=== PATIENT | female | born 1990 | race Hispanic/Latino ===

== ENCOUNTER 2017-08-05 13:04 | Outpatient (CLI) | payer OTHER | END 2017-08-05 13:05 | disposition home or self-care (01) | LOC: BICULT 13:04 | PROVIDERS: ATTEND Family Medicine | DX: N63.10 Unspecified lump in the right breast, unspecified quadrant (principal) ==

== ENCOUNTER 2020-03-30 08:12 | Emergency (ER) | payer OTHER ==
[2020-03-30] MEDS ORDERED: Boostrix 0.5 ML (Tdap) VIAL ONE (08:16)
[2020-03-30] MEDS ORDERED: Fentanyl 100 MCG/2 ML VIAL ONE (08:30)
[2020-03-30] MEDS ORDERED: Ondansetron PF 4 MG/2 ML Vial ONE (08:30)
[2020-03-30 08:39] LABS: #Eosinphils 0.1 thou/uL (0.0-0.7); #Lymphocytes 1.5 thou/uL (1.20-3.40); #Monocytes 0.5 thou/uL (0.11-0.59); #Neutrophils 8.9 thou/uL (1.40-6.50); %Basophils 0.1 % (0.0-1.0); %Eosinophils 0.6 % (0.0-10.0); %Lymphocytes 13.7 % (21.0-51.0); %Monocytes 4.2 % (0.0-10.0); %Neutrophils 81.4 % (42.0-75.0); Mean Corpuscular HGB CONC 35.9 g/dL (32.0-36.0); Mean Corpuscular Hemoglobin 34.6 pg (27.0-31.0); Mean Corpuscular Volume 96.6 fL (78.0-98.0); Mean Platelet Volume 8.5 fL (7.4-10.4); Platelet Count 214 thou/uL (130-400); RBC Distribution Width 11.4 % (11.5-14.5); Red Blood Cell (RBC) Count 3.76 mill/uL (4.20-5.40); White Blood Cell (WBC) Count 10.9 thou/uL (4.8-10.8)
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
[2020-03-30 09:04] LABS: BHCG - Serum POSITIVE (NEGATIVE); Pregs Control Background? CLEAR/WHITE (CLR/WHITE); Pregs Control Bar Appear? YES (CONTROL BAR)
[2020-03-30 09:06] LABS: Prothrombin Time 13.5 sec (12.0-14.7)
[2020-03-30 09:07] LABS: PTT 29.1 sec (22.9-36.1)
--- NOTE | 2020-03-30 09:09 | RAD ---
Right knee:4 views INDICATIONS:Injury with pain COMPARISON:None FINDINGS: Joint spaces are maintained. No evidence of fracture. No osseous abnormality. No soft tissue abnormality. IMPRESSION: No acute finding
[2020-03-30 09:16] LABS: ALT (SGPT) 13 U/L (8-55); AST (SGOT) 20 U/L (5-34); Albumin 3.6 g/dL (3.5-5.0); Alkaline Phosphatase 51 U/L (40-110); Anion Gap 10 mmol/L (10-20); BUN (Urea Nitrogen) 5 mg/dL (7.0-18.7); Bilirubin, Total 0.4 mg/dL (0.2-1.2); Calc. Creatinine Clearance 0 mL/min (70-130); Calcium 8.3 mg/dL (7.8-10.44); Carbon Dioxide 21 mmol/L (22-29); Chloride 110 mmol/L (98-107); Glucose 83 mg/dL (70-105); Potassium 3.8 mmol/L (3.5-5.1); Protein, Total 6.6 g/dL (6.0-8.3); Sodium 137 mmol/L (136-145)
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
[2020-03-30] MEDS ORDERED: Lidocaine 1% (PF) 30 ML VIAL ONE (10:02)
--- NOTE | 2020-03-30 10:38 | RAD ---
RIGHT FORELEG 2 VIEWS: INDICATION: Fall from ladder from right leg pain. COMPARISON: There is soft tissue swelling and gas involving the anterolateral aspect of the mid foreleg without a radiopaque foreign body suspicious for a large laceration and contusion. No acute fracture is evide nt. IMPRESSION: 1. Large suspected laceration contusion involving the anterior lateral foreleg without radiopaque foreign body. 2. No acute fracture or subluxation demonstrated. POS: [facility]
--- NOTE | 2020-03-30 10:39 | RAD ---
LEFT HUMERUS 2 VIEWS: HISTORY: Fall, left arm pain. FINDINGS/IMPRESSION: The left humerus is intact. POS: [facility]
[2020-03-30] MEDS ORDERED: Iopamidol-370 76% 500 ML 1 ML ONE (14:16)
== END 2020-03-30 11:05 | disposition home or self-care (01) ==
LOC: ERS 08:12
DX: O9A.212 Injury, poisoning and certain other consequences of external causes complicating pregnancy, second trimester (principal); S40.021A Contusion of right upper arm, initial encounter; S80.11XA Contusion of right lower leg, initial encounter; Z23 Encounter for immunization; Z3A.17 17 weeks gestation of pregnancy; W17.89XA Other fall from one level to another, initial encounter
CPT/HCPCS: 12002; 36415; 70450; 71260; 72125; 74177; 80053; 84484; 84703; 85025; 85610; 85730; 86850; 86900; 86901; 90471; 90715; 93005; 96365; 96375; G0390; J0690; J2001; J2405; J3010; Q9967

== ENCOUNTER 2020-04-15 14:23 | Outpatient (CLI) | payer OTHER ==
--- NOTE | 2020-04-15 15:59 | ULT ---
EXAM: Right lower extremity venous ultrasound HISTORY: Right lower extremity pain and edema COMPARISON: None TECHNIQUE: Multiplanar grayscale and color Doppler images were obtained in a right lower extremity ve nous ultrasound. Spectral analysis of the Doppler waveforms were performed. FINDINGS: The common femoral vein, profunda femoral vein, superficial femoral vein, and popliteal vei n are normal in appearance without visible thrombus. These vessels demonstrate normal compression, flow, and augmentation. The posterior tibial vein and greater saphenous vein are patent without evidence of thrombus. Normal-appearing lymph nodes are seen in the right inguinal region. IMPRESSION: No evidence of DVT.
== END 2020-04-15 14:24 | disposition home or self-care (01) ==
LOC: ULT 14:23
PROVIDERS: ATTEND Family Medicine
DX: R60.0 Localized edema (principal)

== ENCOUNTER 2020-04-18 09:33 | Outpatient (CLI) | payer OTHER ==
--- NOTE | 2020-04-18 11:20 | ULT ---
OBSTETRICAL ULTRASOUND: INDICATION: . COMPARISON: None. FINDINGS: A single live intrauterine gestation in breech presentation. Placenta is anterior in location. Cardiac activity is seen at 152 b.p.m. KALIE measures 17 cm. Cervical length was 4.3 cm. The head, heart, stomach, kidneys, cord insertion, bladder, spine, extremities, and e-vessel co rd are within normal limits. The lips and nose were not well seen. Biparietal diameter measured 4.77 cm giving an estimated gestational age of 20 weeks and 3 days. The head circumference measures 17.96 cm giving an estimated gestational age of 20 weeks and 3 days. The abdominal circumference is 15.55 cm giving an estimated gestational age of 20 weeks and 6 days. Femoral length was 3.51 cm giving an estimated gestational age of 21 weeks and 1 day. The average gestational age by ultrasound is 20 weeks and 5 days. The estimated clinical age is 21 w eeks and 1 day. The estimated due date by ultrasound is 08/31/2020. The estimated due date by clinical dates is 2020. The estimated weight is 380 gm +/- 55 gm (0 pounds 13 ounces +/-2 ounces)(28th percentile). IMPRESSION: 1. Single live intrauterine gestation with size and dates as above. 2. survey was largely within normal limits. The nose and lips are not well seen. A followup ultrasound in 1-2 weeks to complete the survey is recommended. POS: [facility]
== END 2020-04-18 09:34 | disposition home or self-care (01) ==
LOC: BICULT 09:33
PROVIDERS: ATTEND Family Medicine
DX: O09.892 Supervision of other high risk pregnancies, second trimester (principal); Z3A.20 20 weeks gestation of pregnancy
CPT/HCPCS: 76805

== ENCOUNTER 2021-04-11 13:58 | Outpatient (CLI) | payer OTHER, SELFPAY | END 2021-04-11 13:59 | disposition home or self-care (01) | LOC: ULT 13:58 | PROVIDERS: ATTEND Pain Medicine Interventional Pain Medicine | DX: M79.604 Pain in right leg (principal); I70.203 Unspecified atherosclerosis of native arteries of extremities, bilateral legs; I70.8 Atherosclerosis of other arteries | CPT/HCPCS: 93923 ==